=== PATIENT | female | born 1955 | race Caucasian/White ===

== ENCOUNTER → 2019-09-11 16:17 | Outpatient (BNVA) | payer BC, SELFPAY | PROVIDERS: Family Provider Family Medicine; PCP Nurse Practitioner Family; Visit Provider Family Medicine | DX: R50.9 Fever, unspecified (principal); R05 Cough | CPT/HCPCS: 71046; 80053; 81003; 85025; 87635 ==

== ENCOUNTER → 2019-09-14 13:18 | Outpatient (BNVA) | payer BC, SELFPAY | PROVIDERS: Family Provider Family Medicine; PCP Nurse Practitioner Family; Visit Provider Family Medicine | DX: J18.9 Pneumonia, unspecified organism (principal) | CPT/HCPCS: 71046 ==

== ENCOUNTER → 2019-11-01 07:29 | Outpatient (BNVA) | payer BC, SELFPAY | PROVIDERS: Family Provider Family Medicine; PCP Nurse Practitioner Family; Visit Provider Nurse Practitioner Family | DX: Z00.00 Encounter for general adult medical examination without abnormal findings (principal); Z68.26 Body mass index [BMI] 26.0-26.9, adult | CPT/HCPCS: 80053; 80061 ==

== ENCOUNTER → 2020-11-14 15:50 | Outpatient (BNVA) | payer BC, SELFPAY | PROVIDERS: Family Provider Family Medicine; PCP Nurse Practitioner Family; Visit Provider Nurse Practitioner Family | DX: Z00.00 Encounter for general adult medical examination without abnormal findings (principal); Z68.27 Body mass index [BMI] 27.0-27.9, adult | CPT/HCPCS: 80053; 80061; 84443 ==

== ENCOUNTER 2022-12-11 10:55 | Outpatient (CLI) | payer MEDICARE, OTHER, SELFPAY ==
--- NOTE | 2022-12-11 11:00 | CT_ITS ---
WS: [id number] CT NECK WITHOUT CONTRAST HISTORY: syncope TECHNIQUE: Contiguous 2 mm axial images are performed through the neck without intravenous contrast. Sagittal and coronal reformats are also submitted. All CT scans at [facility] use at least on e of these dose optimization techniques: automated exposure control; mA and/or kV adjustment per vern ent size (includes targeted exams where dose is matched to clinical indication); or iterative reconst ruction. CONTRAST: CONTRAST: None DLP: 525.83 mGy.cm COMPARISON: 02/11/2015 By history patient is status post bilateral surgical removal of paragangliomas. There are numerous cao rgical clips noted bilaterally along the cervical chain at the level of the carotid bifurcations. No contrast was provided. The overall configuration of the soft tissue is very similar to the prior exam ination. There are small bilateral cervical chain lymph nodes. Largest lymph nodes measure approximat chely 7 to 8 mm and are greater in number along the LEFT cervical chain but not enlarged. No compromise of the airway. No masses are identified through the larynx. Fullness within the RIGHT n riddhi corresponds to a prominent jugular vein that has been seen on prior studies. Degenerative disc disease and straightening of the normal cervical lordosis. Visualized portions of the skull base demonstrate no abnormalities. Orbits and globes are within norm al limits. No soft tissue masses. Small mucous retention cyst within the LEFT maxillary sinus. No destructive bone lesions. Lung apices are clear. IMPRESSION: 1. Postsurgical changes along the cervical chains. Similar to the prior examination from 02/11/2015. This study was performed without IV contrast which limits evaluation of enhancing nodules. No evidenc e for recurrent mass. 2. Small bilateral cervical chain lymph nodes. No enlarging lymph node.
--- NOTE | 2022-12-11 11:00 | CT_ITS ---
WS: [id number] CT chest wo con [id number] HISTORY: syncope episode TECHNIQUE: Axial imaging performed through the thorax. Coronal and sagittal reformats are submitted. All CT scans at [facility] use at least one of these dose optimization techniques: automated exposure control; mA and/or kV adjustment per patient size (includes targeted exams where dose is mat ched to clinical indication); or iterative reconstruction. CONTRAST: None DLP: 525.83 mGy.cm COMPARISON: 07/12/2014 Lungs and central airway: Lungs are hyperinflated. There are numerous very small bilateral pulmonary nodules. As compared to 07/12/2014 these nodules do appear to been present at that time also. These no dules are scattered throughout the lungs but greatest in the upper lobes. Subpleural scarring with ca lcification in the posterior RIGHT upper lobe. Subtle opacifications in the anterior RIGHT middle lob e and at the lingula. Pleura: Normal. No pleural effusion. Heart and pericardium: Mildly enlarged heart. Very small pericardial effusion. This is similar to the prior study from 2014. Mediastinum and trice: Small amount of fluid in the pericardial recesses. No adenopathy. Vessels: Normal size aortic and pulmonary artery. No coronary artery calcifications. Chest wall and lower neck: 10 mm nodule lower pole RIGHT thyroid. No adenopathy identified in the low er neck. No chest wall abnormality. Upper abdomen: New since 2014 is a 2.1 cm cyst upper pole RIGHT kidney. Moderate size hiatal hernia. Osseous structures: Mild degenerative disc disease and scoliosis. No destructive bone lesions. IMPRESSION: 1. Subcentimeter, noncalcified nodules noted bilaterally within each lung. Very similar to 07/12/2014. No new mass or pneumonia identified. Minimal focal areas of pneumonitis in the RIGHT middle lobe and lingula. 2. No solid mass or pneumonia. 3. No adenopathy. 4. Mild cardiomegaly and a small pericardial effusion. 5. Moderate size hiatal hernia. 6. Superior pole RIGHT renal cyst.
== END 2022-12-11 10:56 | disposition home or self-care (01) ==
LOC: RAD 10:59
PROVIDERS: PCP Family Medicine Adult Medicine; Visit Provider Family Medicine Adult Medicine
DX: R55 Syncope and collapse (principal); J38.01 Paralysis of vocal cords and larynx, unilateral; C75.5 Malignant neoplasm of aortic body and other paraganglia; Z87.898 Personal history of other specified conditions; R91.8 Other nonspecific abnormal finding of lung field; I51.7 Cardiomegaly; I31.39 Other pericardial effusion (noninflammatory)
CPT/HCPCS: 70490; 71250

== ENCOUNTER 2023-01-12 08:24 | Outpatient (CLI) | payer MEDICARE, OTHER, SELFPAY ==
--- NOTE | 2023-01-12 08:32 | FL_ITS ---
WS: [id number] Exam: FL barium swallow modifd [id number] Date/Time of Exam: 01/12/2023 9:05 AM Reason For Exam: Oral dysphagia Fluoroscopy time: 2min [id number] minutes # of spot films: Modified barium swallow was performed in conjunction with the speech therapy service. Oropharyngeal phase of swallowing was normal. There was no aspiration or penetration. The patient kristyn erated all consistencies of barium mixture foodstuffs without difficulty. The patient swallowed a bar ium tablet without complication. IMPRESSION: 1. Unremarkable modified barium swallow. No aspiration or penetration observed. A separate report of findings and recommendations will follow from the speech therapy service.
== END 2023-01-12 08:25 | disposition home or self-care (01) ==
LOC: RAD 08:24
PROVIDERS: PCP Family Medicine Adult Medicine; Visit Provider Specialist
DX: R13.11 Dysphagia, oral phase (principal)
CPT/HCPCS: 74230; 92611